=== PATIENT | male | born 1965 | race Caucasian/White ===

== ENCOUNTER 2020-02-28 14:54 | Emergency (ER) | payer SELFPAY ==
[~2020-02-28] VITALS: Ht 180.3 cm; Wt 88.9 kg
[2020-02-28 15:04] VITALS: BP 162/102
--- NOTE | 2020-02-28 15:09 | NUR ---
54 Y/O MALE FROM HOME REFERRED FROM URGENT CARE FOR LT TESTICLE PAIN X 3 DAYS. PT SENT FROM URGENT CARE TO RULE OUT TESTICULAR TORSION. STATES 5/10 PAIN. INCREASED PAIN WITH URINATION. STATES SLIGHT HEMATURIA. AWAKE AND ALERT.
--- NOTE | 2020-02-28 15:27 | NUR ---
PT TO US VIA [facility]
--- NOTE | 2020-02-28 16:38 | NUR ---
PT TO BED 12, URINE COLLECTED
[2020-02-28 16:49] LABS: APPEARANCE,URINE CLEAR (CLEAR); BILIRUBIN,URINE 1+ (NEGATIVE); BLOOD, URINE 3+ (NEGATIVE); COLOR,URINE YELLOW (YELLOW); LEUKOCYTE ESTERASE ,URINE NEGATIVE (NEGATIVE); NITRITE, URINE NEGATIVE (NEGATIVE); UGLUCOSE NEGATIVE (NEGATIVE)
[2020-02-28] MEDS ORDERED: cefTRIAXone 250 MG in LIDOCAINE MPF 1% 0.9 ML IM ONE (16:55)
[2020-02-28] MEDS ORDERED: cefTRIAXone 250 MG VIAL ONE (17:02)
[2020-02-28] MEDS ORDERED: LIDOCAINE MPF 1% 5 ML ONE (17:02)
--- NOTE | 2020-02-28 17:07 | NUR ---
[facility] IM ADMINISTERED
[2020-02-28 17:22] LABS: RBC,URINE 0-5 /HPF (0-5); WBC,URINE 0-5 /HPF (0-5)
--- NOTE | 2020-02-28 17:29 | NUR ---
NADR, PAIN 12/23
[2020-02-28 17:31] VITALS: BP 152/88
--- NOTE | 2020-02-28 17:31 | NUR ---
Patient discharged with v/s stable. Written and verbal after care instructions given and explained. Patient alert, oriented and verbalized understanding of instructions. Ambulatory with steady gait. All questions addressed prior to discharge. ID band removed. Patient advised to follow up with PMD. Rx of LEVOFLOXACIN given. Patient educated on indication of medication including possible reaction and side effects. Opportunity to ask questions provided and answered.
== END 2020-02-28 17:31 | disposition home or self-care (01) ==
LOC: MED 14:54
DX: N45.1 Epididymitis (principal)
CPT/HCPCS: 76870; 81001; 96372; 99284; J0696; J2001; Q0092